=== PATIENT | male | born 1970 | race African-American/Black ===

== ENCOUNTER 2022-06-21 12:12 | Emergency (ER) | payer OTHER, MEDICAID ==
[~2022-06-21] VITALS: Ht 182.9 cm; Wt 120.0 kg
[~2022-06-21 12:12] MED LIST: DIVA1TAB58; RISP0.5T20
[2022-06-21 12:17] VITALS: BP 153/81
== END 2022-06-21 13:39 | disposition left against medical advice (07) ==
LOC: ER 12:12
DX: S61.012A Laceration without foreign body of left thumb without damage to nail, initial encounter (principal); Z53.21 Procedure and treatment not carried out due to patient leaving prior to being seen by health care provider; X58.XXXA Exposure to other specified factors, initial encounter; Y93.89 Activity, other specified; Y92.89 Other specified places as the place of occurrence of the external cause; Y99.8 Other external cause status